=== PATIENT | male | born 1975 | race Caucasian/White ===

== ENCOUNTER 2024-07-08 10:47 | Emergency (ER) | payer OTHER ==
[2024-07-08 11:04] VITALS: BP 129/84; PULSE 67; RESP 18; TEMP 97.9; BMI 23.0
== END 2024-07-08 12:50 | disposition home or self-care (01) ==
LOC: JERFT 10:47 → JER 10:47 → JERFT 12:50
DX: S43.401A Unspecified sprain of right shoulder joint, initial encounter (principal); R20.0 Anesthesia of skin; R20.2 Paresthesia of skin; X50.9XXA Other and unspecified overexertion or strenuous movements or postures, initial encounter
CPT/HCPCS: 73030-TC-RT-FY; 99283-25